=== PATIENT | female | born 1935 ===

== ENCOUNTER 2024-05-31 00:56 | Emergency (ER) | payer OTHER, MEDICARE, SELFPAY ==
[2024-05-31] VITALS (8 sets, daily range): BP systolic 140–215; BP diastolic 70–96; BMI 22.3
--- NOTE | 2024-05-31 01:17 | ED.MUSCINJ ---
HPI-Injury
<MONSE Walton - Last Filed: 05/31/24 04:25>
General
Chief Complaint: Musculo-Skeletal Complaint
Source: patient
Exam Limitations: none
Time Seen by Provider: 05/31/24 00:58
Nursing documentation reviewed up to this point in time: agreed with
History of Present Illness-Injury
Initial Injury comments:
88 year old female presents for evaluation of right hip pain. Pt reports that she is a resident at [facility]. She notes that upon standing from her couch this afternoon at approximately 1300, she noticed pain in her right hip. She denies falling
or other trauma to the area. She endorses radiation of the pain into her right knee. 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 She is currently taking Meloxicam and
Tramadol. No numbness/tingling or incontinence of bowel or bladder reported.
Review of Systems
<MONSE Walton - Last Filed: 05/31/24 04:25>
Review of Systems
Constitutional: Reports no symptoms
EENT: Reports no symptoms
Respiratory: Reports no symptoms
Cardiac: Reports no symptoms
ABD/GI: Reports no symptoms
: Reports no symptoms
Musculoskeletal: Reports joint pain and other (hip pain )
Skin: Reports no symptoms
Neurological: Reports no symptoms
Hematologic/Lymphatic: Reports no symptoms
Musculoskeletal Injury Exam
<MONSE Walton - Last Filed: 05/31/24 04:25>
Musculoskeletal Injury Exam
Right Hip:
Pain with Movement?: Moderate
Tender to palpation?: Moderate (Right ASIS and R low back area)
Soft tissue swelling?: None
External deformity and angulation?: None
Contusion?: None
Hematoma-local bleeding into tissue?: None
Crepitus with movement?: No
Joint instability?: No
Range of motion: Full (internal/external hip rotation slightly limited with associated elicitation of pain )
Capillary Refill: normal
Normal distal neurovascular exam?: Yes
Phy Exam
<MONSE Walton - Last Filed: 05/31/24 04:25>
General Physical Exam
General Presentation: well appearing
General age: appears stated age
General Skin: warm
General Habitus: elderly
General Mental: alert
General Hydration: appears well hydrated
Cardiovascular Exam
Cardiovascular Exam: regular rate/rhythm
Pulmonary Exam
Pulmonary Exam: lungs clear and no respiratory distress
Neurological Exam
Neurological Exam: alert and oriented x3
Musculoskeletal Exam
Musculoskeletal Exam: full ROM, back pain (low back pain ), neuro vasc intact and other (hip pain and tenderness )
Skin Exam
Skin Exam: normal color and warm/dry
Injury Course
<ST IsabelleLA - Last Filed: 05/31/24 04:25>
Orders/Labs/Results
Orders:
Orders
05/31/24 01:01
Hip, Right 2-3 Views [CR Hip - RT w/wo Pel 2-3 Vw*] Urgent
Comment:
Reason For Exam: right hipop pain, no trauma
Include a pelvis x-ray?: Yes
05/31/24 01:51
Ketorolac [Toradol] 30 mg IV NOW STA
05/31/24 02:49
HYDROmorphone [Dilaudid] 0.5 mg IV NOW STA
05/31/24 03:52
Metoprolol [Lopressor] 5 mg IV NOW STA
<Eduardo Brody DO - Last Filed: 05/31/24 04:16>
Orders/Labs/Results
Orders:
Orders
05/31/24 01:01
Hip, Right 2-3 Views [CR Hip - RT w/wo Pel 2-3 Vw*] Urgent
Comment:
Reason For Exam: right hipop pain, no trauma
Include a pelvis x-ray?: Yes
05/31/24 01:51
Ketorolac [Toradol] 30 mg IV NOW STA
05/31/24 02:49
HYDROmorphone [Dilaudid] 0.5 mg IV NOW STA
05/31/24 03:52
Metoprolol [Lopressor] 5 mg IV NOW STA
<MONSE Walton - Last Filed: 05/31/24 04:25>
MDM/Problems Addressed
Differential Diagnosis Includes:
Bursitis, R hip fracture, R hip dislocation, muscle strain, tendonitis
MDM/Problems Addressed:
CR Hip - RT w/wo Pel 2-3 Vw
05/31/24 01:51
Ketorolac [Toradol] 30 mg IV
05/31/24 02:49
HYDROmorphone [Dilaudid]
<MONSE Walton - Last Filed: 05/31/24 04:25>
*Critical Care Note
Total Time (30-74mins, 75-104mins- exclusive of procedures): Not Applicable
<Eduardo Brody DO - Last Filed: 05/31/24 04:16>
Update Note
Update Note:
05/31/2024 0349 AM: Patient feeling much better after Dilaudid. Wishes to be discharged home. Her family doctor did an injection in the past.
ED Attending Note
<MONSE Walton - Last Filed: 05/31/24 04:25>
-
Portions of this chart may have been created with voice recognition software.� Occasional wrong word or��sound alike� substitutions may have occurred due to the inherent limitations of voice recognition software.
<Eduardo Brody DO - Last Filed: 05/31/24 04:16>
ED Attending Note
Patient seen and examined by attending physician: Yes
I performed the substantive portion of visit, reviewed & personally made and approve the management plan that is documented in note by myself or DASHA.: Yes
ED Attending Note:
Pleasant 88 year old female presents with right hip pain. She states it started right after lunch. She denies any trauma. She resides at an independent living [facility]. She reports that the pain radiates from her low back down to her right
knee. She had similar symptoms in the past. She had an MRI that showed that it was bursitis over the right hip. She received an injection and stated that the pain resolved for several years. Patient takes Mobic and tramadol. Denies any other
injury. Reports no head injury or loss of consciousness. Patient was seen in conjunction with the PA student. I have reviewed and agree with the history and treatment plan presented. On my independent physical exam, patient is awake, alert, and
oriented x3 minimal acute distress while lying flat. Normal hip rolling test. Some tenderness to palpation in the lateral posterior low back on the right and posterior hip near the ASIS.
Plan is abdominal
Discharge Plan
Departure
Patient Disposition: Home (Routine Discharge)
Date of Disposition: 05/31/24
Time of Disposition: 03:51
Patient with high blood pressure during this ER visit?: No
Condition: Good
Discharge Problem:
Bursitis of hip, right
Instructions: Bursitis (DC), BLOOD PRESSURE
Prescriptions:
No Action
meloxicam
15 mg PO DAILY
paroxetine HCl
20 mg PO DAILY
tramadol
50 mg PO Q6H PRN (Reason: pain)
triamterene-hydrochlorothiazid
1 tab PO DAILY
Rx Instructions:
37.5/25mg
Referrals:
Greg Anthony, [Non-Admitting Privileges] - Call in 1-3 days for appt
Prosper Ledesma DO [Family Provider] -
Activity Restrictions/Additional Instructions:
Please restart your meloxicam as previously directed. Speak with your family doctor regarding an injection.
It was a pleasure meeting you and taking part in your care. We hope for your continued healing and wellness.
Please read discharge instructions in their entirety. However, they are for general education and may not describe your exact diagnosis at discharge. Information on your ER visit and medical conditions were discussed with you along with appropriate
follow up information...
If indicated, please take your medications as instructed and indicated on discharge paperwork.
Please schedule a follow up appointment as directed. Call to schedule an appointment
Please return to the emergency department with ANY change in, persisting, or worsening of symptoms. If any of your symptoms do not improve, or persist, or become more severe within 6-12 hours, please return to the emergency department for further
care.
Please return to the emergency department if you develop a headache, neck pain/stiffness, fever greater than 100.4F, chest pain, shortness of breath, persistent nausea, vomiting, slurred speech, difficulty walking, numbness/tingling, weakness, signs
of infection or any other symptoms that are worrisome to you.
If you have any questions or concerns please do not hesitate to call the Hospital at or E-mail me directly at [email or web address]
Interventions
Interventions:
*Risk Screen - Suicide Last Done: 05/31/24 00:59
*General Assessment Last Done: 05/31/24 00:59
*Neglect/Abuse Screening Last Done: 05/31/24 00:59
ED- Fall Risk Assessment Last Done: 05/31/24 01:49
*ED COVID-19 Vaccine History Last Done: 05/31/24 00:59
ED-Musculoskeletal Assessment Last Done: 05/31/24 01:49
Discharge Date and Time
Print Language: LUXEMBOURGISH
[2024-05-31] MEDS: TORADOL 30 MG IV (01:59)
[2024-05-31] MEDS: DILAUDID 0.5 MG IV (02:55)
[2024-05-31] MEDS: LOPRESSOR 5 MG IV (03:58)
[2024-05-31] MEDS: ZOFRAN 4 MG IV (05:08)
== END 2024-05-31 06:04 | disposition home or self-care (01) ==
LOC: EMR 00:56
PROVIDERS: EMERGENCY PHYSICIAN Student in an Organized Health Care Education/Training Program; FAMILY PHYSICIAN Family Medicine
DX: M70.71 Other bursitis of hip, right hip (principal)
CPT/HCPCS: 99284; 96374; 96375 ×3; 73502

== ENCOUNTER 2024-06-05 13:16 | Emergency (ER) | payer OTHER, SELFPAY ==
[2024-06-05] VITALS (8 sets, daily range): BP systolic 143–222; BP diastolic 70–112; BMI 22.4
[2024-06-05] MEDS: DILAUDID 0.5 MG IV (16:36)
[2024-06-05 16:49] LABS: % Basophils 0.4 % (0-2); % Eosinophils 2.4 % (0-6); % Immature Granulocytes 0.3 % (0-0.5); % Lymphocytes 23.1 % (20.5-51.1); % Monocytes 9.1 % (1.7-9.3); % Neutrophils 64.7 % (42.2-75.2); Absolute Eosinophils 0.2 10^3/uL (0-0.7); Absolute Lymphocytes 2.3 10^3/uL (1.2-3.4); Absolute Monocytes 0.9 10^3/uL (0.1-0.6); Absolute Neutrophils 6.4 10^3/uL (1.4-6.5); Hematocrit 41.1 % (37.0-47.0); Mean Corp Hgb Conc. 34.1 g/dL (33.0-37.0); Mean Corpuscular Hgb 30.1 pg (27.0-31.0); Mean Corpuscular Volume 88.4 fL (81.0-99.0); Mean Platelet Volume 11.4 fL (7.4-10.4); Nucleated Red Blood Cells % 0 %; Platelet Count 194 10^3/uL (130-400); Red Blood Cell Count 4.65 10^6/uL (4.20-5.40); Red Cell Dist. Width 12.7 % (11.5-14.5); White Blood Cell Count 9.8 10^3/uL (4.8-10.8)
[2024-06-05 17:12] LABS: Chloride 98 mmol/L (98-107); Potassium 4.7 mmol/L (3.5-5.1); Sodium 139 mmol/L (135-145)
[2024-06-05 17:14] LABS: ALT (SGPT) 36 U/L (0-35); AST (SGOT) 43 U/L (14-36); Albumin 4.9 g/dl (3.5-5.0); Alkaline Phosphatase 75 U/L (38-126); Blood Urea Nitrogen 42 mg/dl (7-17); Calcium 9.9 mg/dl (8.4-10.2); Carbon Dioxide 32 mmol/L (22-30); Estimated Creatinine Clearance 32 ml/min; Glucose 102 mg/dl (70-99); Total Bilirubin 0.6 mg/dl (0.2-1.3); Total Protein 7.4 g/dl (6.3-8.2); eGFR 43.54
[2024-06-05] MEDS: APRESOLINE 10 MG IV (18:33)
--- NOTE | 2024-06-05 19:37 | ED.GENMED ---
History of Present Illness
<Romi Espana PA-C - Last Filed: 06/06/24 11:52>
General
Chief Complaint: Extremity Pain (non-traumatic)
Source: patient
Exam Limitations: none
Time Seen by Provider: 06/05/24 15:30
Nursing documentation reviewed up to this point in time: agreed with
History of Present Illness
History of Present Illness:
88 y/o F WITH h/o HTN
chronic back/hip pain right side
says that she had MRI in october after this pain really began, not really showing significant findings, maybe spinal stenosis
also bursitis R hip
pt had injection in her hip by PCP an was put on tramadol and meloxicam which really helped, had PT and by january she felt better
then in march pain returned,same location right lower back/hip and radiating down her right leg
she started taking the tramadol and meloxicam again regularly and was having ok pain relief
then about 2 weeks ago her insurance stopped paying for the tramadol so she stopped it
and over the past week has had more pain. she came here 1 week ago and had xray of the hip
was hypertensive at the time, got a dose of IV metoprolol and her BP improved
she went home and was told to f/u with pcp
saw PCP and was given rx for vicodin which she has taken 3 times a day but doesn't feel that it is helping like tramadol helped. she also went to urgent care a few days ago and was told to f/u with ortho, she has appt tomorrow
but pt says the pain is just too much
she lives alone
doesn't feel like she is going to fall, she can use a walker. the pain is worse with movement, in the stretcher, walking. no weakness, numbness in the leg; no fever/chills, incontinence
Past History
<Romi Espana PA-C - Last Filed: 06/06/24 11:52>
Social History
Tobacco: Non-smoker
Alcohol: None
Drug: None
Personal: Single
Living: alone
Review of Systems
<Romi Espana PA-C - Last Filed: 06/06/24 11:52>
Review of Systems
Allergies reviewed?: Yes
All Other Systems: Not applicable
Phy Exam
<Romi Espana PA-C - Last Filed: 06/06/24 11:52>
Physical Exam
Physical Exam:
GENERAL: Alert , in no apparent distress, comfortable at rest
HEAD: NCAT
NECK: no midline tenderness, active ROM intact, no paraspinal muscle tenderness;
CARDIAC: Regular rate and rhythm, no edema
LUNGS: Clear breath sounds bilaterally, no acute respiratory distress, no wheezes/rales/rhonchi
ABDOMEN: Soft, without focal tenderness, no r/g, no cvat, normal bowel sounds, nondistended
NEUROLOGICAL: Alert and oriented, no focal neuro deficits, CN intact, 5/5 strength, sensation intact, ambulation well with wlaker
SKIN: Warm and dry,
MUSCULOSKELETAL: No edema, well perfused. Normal inspection of the right hip, right leg
Patient has no tenderness to palpation of the hip, mild tenderness in the SI joint
pt cam flex hip 45 degrees with some pain and some pain with int/ext rotation but i am able to adequately ppassively range the joint well
Back: No midline tenderness, mild dextroscoliosis, slight right paraspinal muscle tenderness on exam, no swelling
pain in the right leg with straight leg raise on the Right
normal strength and sensation in the leg
PSYCH: Normal and appropriate interaction.
Course
<Romi Espana PA-C - Last Filed: 06/06/24 11:52>
Orders/Labs/Results
Orders:
Orders
06/05/24 16:06
HYDROmorphone [Dilaudid] 0.5 mg IV NOW STA
06/05/24 16:38
Complete Blood Count/With Diff Urgent
Comprehensive Metabolic Panel Urgent
06/05/24 18:24
HydrALAZINE [Apresoline] 10 mg IV NOW STA
HydrALAZINE [Apresoline] 5 mg IV NOW STA
06/05/24 19:34
Tramadol HCl [Ultram] 50 mg PO NOW STA
06/05/24 19:35
0.9% Sodium Chloride 250 ml [Nss] 250 ml IV BOLUS
06/05/24 19:38
Dexamethasone [Decadron] 10 mg PO NOW STA
Abnormal Lab Results
06/05/24
16:38
MPV 11.4 H fL
(7.4-10.4)
Absolute Monos (auto) 0.9 H 10^3/uL
(0.1-0.6)
Carbon Dioxide 32 H mmol/L
(22-30)
BUN 42 H mg/dl
(7-17)
Creatinine 1.2 H mg/dL
(0.6-1.0)
Glucose 102 H mg/dl
(70-99)
AST 43 H U/L
(14-36)
ALT 36 H U/L
(0-35)
06/05/24 16:38
06/05/24 16:38
Vital Signs
Initial and Last Documented VS:
Initial Vital Signs
Temp Pulse Resp BP Pulse Ox
97.9 F 62 18 222/101 99
06/05/24 13:18 06/05/24 13:18 06/05/24 13:18 06/05/24 13:18 06/05/24 13:18
Last Documented Vital Signs
Temp Pulse Resp BP Pulse Ox
97.9 F 61 18 143/70 96
06/05/24 13:18 06/05/24 18:33 06/05/24 13:18 06/05/24 20:00 06/05/24 19:51
<José Miguel Deshpande MD - Last Filed: 06/05/24 20:39>
Orders/Labs/Results
Orders:
Orders
06/05/24 16:06
HYDROmorphone [Dilaudid] 0.5 mg IV NOW STA
06/05/24 16:38
Complete Blood Count/With Diff Urgent
Comprehensive Metabolic Panel Urgent
06/05/24 18:24
HydrALAZINE [Apresoline] 10 mg IV NOW STA
HydrALAZINE [Apresoline] 5 mg IV NOW STA
06/05/24 19:34
Tramadol HCl [Ultram] 50 mg PO NOW STA
06/05/24 19:35
0.9% Sodium Chloride 250 ml [Nss] 250 ml IV BOLUS
06/05/24 19:38
Dexamethasone [Decadron] 10 mg PO NOW STA
Abnormal Lab Results
06/05/24
16:38
MPV 11.4 H fL
(7.4-10.4)
Absolute Monos (auto) 0.9 H 10^3/uL
(0.1-0.6)
Carbon Dioxide 32 H mmol/L
(22-30)
BUN 42 H mg/dl
(7-17)
Creatinine 1.2 H mg/dL
(0.6-1.0)
Glucose 102 H mg/dl
(70-99)
AST 43 H U/L
(14-36)
ALT 36 H U/L
(0-35)
06/05/24 16:38
06/05/24 16:38
Vital Signs
Initial and Last Documented VS:
Initial Vital Signs
Temp Pulse Resp BP Pulse Ox
97.9 F 62 18 222/101 99
06/05/24 13:18 06/05/24 13:18 06/05/24 13:18 06/05/24 13:18 06/05/24 13:18
Last Documented Vital Signs
Temp Pulse Resp BP Pulse Ox
97.9 F 61 18 143/70 96
06/05/24 13:18 06/05/24 18:33 06/05/24 13:18 06/05/24 20:00 06/05/24 19:51
<Romi Espana PA-C - Last Filed: 06/06/24 11:52>
MDM/Problems Addressed
Differential Diagnosis Includes:
sciatica, lumbar radiculopathy, spinal stenosis, hip arthritis,
less likely vascular cause
uncontrolled HTN
MDM/Problems Addressed:
88 y/o F with h/o htn, has been using nsaids regularly
here with right back/hip pain down leg for a ew months
had similar event in oct, had MRI and supposedly showed some spinal stoensis and hip bursitits
pt says this feels similar
came here 1 week ago and had xrays, was hypertensive, given pain meds and bp mesd and went eladio and f/u with pcp who gave rx vicodin, which isn't helping as well as referral to ortho and has that tomorrow
she also saw urgent care
pt isn't sure what to do becuase pain isn't controlled
it is driving her BP up; pt says in the office of PCP her bp wasn't this high
no cp, headache, vision changes
pain is very positional, worse with hip flexion and changing position and ambulation; does not seem vascular
she has good pulses and no cp, sob
given lenght of time this has been ongoing, again unlikely to be vascular cause
despite her saying her pain is severe, she actually does not appear overly uncomfortable
after iv pain meds ambulated to the bathroom well
it seems that tramadol controls her pain better than vicodin
pt was seen by ed attending, after her BP birefly improved with pain meds but the rebounded again 200/90
appreciate cr 1.4, no old to compare
at this point, pt will need to d/c NSAIDS
will try a single dose decadron, tramadol for pain rx
bp improved after dose of hydralazine
she will need outpatient f/u regarding her htn
but we suspet it is mostly anxiety and pain related.
no red flag symptoms to be concerned for cauda equina.
<Romi Espana PA-C - Last Filed: 06/06/24 11:52>
*Critical Care Note
Total Time (30-74mins, 75-104mins- exclusive of procedures): Not Applicable
ED Attending Note
<Romi Espana PA-C - Last Filed: 06/06/24 11:52>
-
Portions of this chart may have been created with voice recognition software.� Occasional wrong word or��sound alike� substitutions may have occurred due to the inherent limitations of voice recognition software.
<José Miguel Deshpande MD - Last Filed: 06/05/24 20:39>
ED Attending Note
Patient seen and examined by attending physician: Yes
ED Attending Note:
Patient with history of right hip bursitis, which has been treated with prednisone as well as tramadol/meloxicam, presents ED secondary to worsening right hip pain over the past 2 weeks, despite taking her medications as well as evaluation with PCP
and at urgent care center. Of note, patient states that her pain has been increasing, and she recently has not been able to take tramadol, as her insurance will not cover the medication. As such, patient was recently started on Vicodin by her
primary care physician without improved symptoms. In addition, patient has been noted to have increased blood pressure recently, including recent evaluation in ED. Denies headache. Denies chest pain. Denies shortness of breath.
Physical Exam
General: mild painful distress, not acutely ill. afebrile
Head: nc/at. eomi
Neck: supple. no meningeal signs.
Heart: s1/s2 regular rate and rhythm, no murmur. equal radial pulses.
Lungs: no acute respiratory distress. clear bilaterally
Abdomen: normal bowel sounds. not tender.
Neuro: alert and oriented. no focal neurological deficits
Skin: no rash
Psychiatric: well kept. interactive and cooperative
Extremities: mild diffuse right hip tenderness to palpation, as well as internal/external rotation.
Blood pressure improved after treatment in ED. Increased creatinine noted, but unknown baseline info. However, difficult to exclude potential effect from medications patient is taking including HCTZ as well as meloxicam. As such, advised patient
to stop taking meloxicam and follow-up with PCP in 1 week for repeat blood pressure as well as blood work. In the meantime, patient will continue blood pressure medication. In addition, patient has an appointment with orthopedic surgery tomorrow
afternoon, for her ongoing hip pain. Patient will be given prescription for tramadol, to be taken as needed. Patient and family state that they will pay [id number] for tramadol, if insurance does not cover it, as this medication has helped her
in the past. Otherwise, patient is hemodynamically stable and neurologically intact, at time of discharge, to the care of her family. Patient will continue to utilize walker at home until reevaluation, for support.
Discharge Plan
Departure
Patient Disposition: Home (Routine Discharge)
Date of Disposition: 06/05/24
Time of Disposition: 20:16
Patient with high blood pressure during this ER visit?: Yes
Condition: Fair
Covid-19: Not Applicable
Discharge Problem:
Chronic lumbar radiculopathy, Chronic hip pain, Hypertension
Instructions: Radiculopathy (DC), BLOOD PRESSURE
Prescriptions:
New
tramadol 50 mg tablet
50 mg PO Q8H PRN (Reason: Pain) Qty: 20 0RF
No Action
meloxicam
15 mg PO DAILY
paroxetine HCl
20 mg PO DAILY
tramadol
50 mg PO Q6H PRN (Reason: pain)
triamterene-hydrochlorothiazid
1 tab PO DAILY
Rx Instructions:
37.5/25mg
Referrals:
Prosper Ledesma, DO [Family Provider] -
Activity Restrictions/Additional Instructions:
STOP THE MELOXICAM
STOP THE VICODIN
TAKE YOUR BLOOD PRESSURE MEDICATION REGULARLY
TAKE TRAMADOL EVERY 8 HOURS NEEDED FOR PAIN. IF IT S SEVERE
YOU CAN ALSO TAKE TYLENOL EVERY 8 HOURS 2 REGULAR STRENGTH TABS, 3 TIMES A DAY
SEE THE ORTHOPEDIST TOMORROW PLANNED
YOUR BLOOD PRESSURE WAS ELEVATED AGAIN THIS VISIT
YOU NEED TO SEE YOUR DOCTOR ABOUT THIS
WE GAVE YOU A DOSE OF TRAMADOL IN THE ER, WELL A DOSE OF DECADRON FOR INFLAMMATION
YOUR KIDNEY FUNCTION WAS SLIGHTLY ELEVATED, YOU COULD BE MILDLY DEHYDRATED, SO WE GAVE YOU SOME FLUIDS
MAKE SURE YOUR DOCTOR RECHECKS YOUR BLOOD WORK
RETURN FOR: SEVERE PAIN, CHEST LAWANDA, HEADACHE, SHORTNESS OF BREATH, LEG WEAKNESS/NUMBNESSS, INCONTINENCE, FEVER OR ANY CONCERNS
Interventions
Interventions:
*Risk Screen - Suicide Last Done: 06/05/24 16:45
*General Assessment Last Done: 06/05/24 16:45
*Neglect/Abuse Screening Last Done: 06/05/24 16:45
ED- Fall Risk Assessment Last Done: 06/05/24 20:44
*ED COVID-19 Vaccine History Last Done: 06/05/24 16:45
*Nursing Disposition Last Done: 06/05/24 20:44
ED-Skin Assessment Last Done: 06/05/24 16:45
ED-Peripheral Vascular Assessment Last Done: 06/05/24 16:45
ED-Musculoskeletal Assessment Last Done: 06/05/24 16:45
Discharge Date and Time
Discharge Date/Time: 06/05/24 20:47
Print Language: UGANDAN
[2024-06-05] MEDS: ULTRAM 50 MG PO (19:50)
[2024-06-05] MEDS: NSS 250 IV (19:59)
[2024-06-05] MEDS: DECADRON 10 MG PO (19:59)
== END 2024-06-05 20:47 | disposition home or self-care (01) ==
LOC: EMR 13:16
PROVIDERS: Physician Assistant; EMERGENCY PHYSICIAN Emergency Medicine; FAMILY PHYSICIAN Family Medicine
DX: M54.16 Radiculopathy, lumbar region (principal); G89.29 Other chronic pain; M25.551 Pain in right hip; I10 Essential (primary) hypertension
CPT/HCPCS: 99284; 96374; 96375; 80053; 85025